=== PATIENT | male | born 1995 | race Asian ===

== ENCOUNTER 2018-05-10 12:02 | Emergency (ER) | payer SELFPAY ==
[2018-05-10] MEDS ORDERED: Ketorolac 30 MG/ML SDV IM ONE (12:30)
[2018-05-10] MEDS ORDERED: Orphenadrine 100 MG Tab.ER PO ONE (12:31)
--- NOTE | 2018-05-10 12:36 | EDM.PDOC ---
ED HPI GENERAL MEDICAL PROBLEM - General Chief Complaint: Back Pain or Injury Stated Complaint: BACK AND LEFT LEG PAIN Time Seen by Provider: 05/10/18 12:16 Source of Information: Reports: Patient, RN Notes Reviewed History Limitations: Reports: No Limitations - History of Present Illness INITIAL COMMENTS - FREE TEXT/NARRATIVE: Patient is a 23-year-old male who presents to the ED today for lower back pain. He states that this pain has been present for around 3 days now. He states that around 3 days ago he was in a car for around 3 hours and he was an awkward , scrunched position as he is quite tall. The gentleman is 6 foot 2 inches tall and states that he does not fit in cars very well. He states that the pain is kind of sharp/irritating pain that starts in his lower lumbar area and works down his left leg. He notes that he did not sleep very well last night due to the pain. He states that he took 400 mg ibuprofen last night around 11: 00 and again this morning around 7 AM. He states he has been taking this every 12 hours. He would rate the pain at a 5 or 6 out of 10. He states that sitting worsens the pain as like and standing somewhat relieves the pain but after a while this aggravates the low back pain. He denies any history of trauma to his back nor any previous deficits. He states that he is a former cigarette smoker and that he used to smoke weed fairly regularly but quit around 5 or 6 months ago. He states that he uses alcohol around 2-3 times per week. He denies any nausea/vomiting/diarrhea, chest pain, shortness of breath, abdominal pain, saddle anesthesia, urinary or bowel dysfunction. Lower Back Pain Score (Numeric/FACES): 6 - Related Data Allergies Allergy/AdvReac Type Severity Reaction Status Date / Time Penicillins Allergy Rash Verified 05/10/18 12:16 Home Meds: Home Meds Orphenadrine [Norflex] 100 mg PO BID PRN #20 tab 05/10/18 [Rx] predniSONE [Deltasone] 20 mg PO ASDIRECTED #15 tablet 05/10/18 [Rx] Past Medical History - Past Health History Medical/Surgical History: Denies Medical/Surgical History Social & Family History - Tobacco Use Smoking Status *Q: Former Smoker Used Tobacco, but Quit: Yes Month/Year Tobacco Last Used: 1 year ago - Caffeine Use Caffeine Use: Reports: Coffee - Recreational Drug Use Recreational Drug Use: Yes Drug Use in Last 12 Months: Yes Recreational Drug Type: Reports: Marijuana/Hashish Recreational Drug Use Frequency: Rarely ED ROS GENERAL - Review of Systems Review Of Systems: See Below Constitutional: Reports: No Symptoms HEENT: Reports: Eye Discharge Respiratory: Reports: No Symptoms Cardiovascular: Reports: No Symptoms Endocrine: Reports: No Symptoms GI/Abdominal: Reports: No Symptoms : Reports: No Symptoms Musculoskeletal: Reports: Back Pain (Lumbar), Leg Pain (Left). Denies: Muscle Pain, Muscle Stiffness Skin: Reports: No Symptoms Neurological: Denies: Numbness, Pre-Existing Deficit, Tingling Psychiatric: Reports: No Symptoms Hematologic/Lymphatic: Reports: No Symptoms Immunologic: Reports: No Symptoms ED EXAM,LOWER BACK PAIN/INJURY - Physical Exam Exam: See Below Exam Limited By: No Limitations General Appearance: Alert, WD/WN, No Apparent Distress Eye Exam: Bilateral Eye: Normal Inspection Ears: Normal External Exam Nose: Normal Inspection Throat/Mouth: Normal Inspection, Normal Oropharynx, No Airway Compromise Head: Atraumatic, Normocephalic Neck: Normal Inspection Respiratory/Chest: No Respiratory Distress, Lungs Clear, Normal Breath Sounds, No Accessory Muscle Use, Chest Non-Tender Cardiovascular: Normal Peripheral Pulses, Regular Rate, Rhythm, No Murmur GI/Abdominal: Normal Bowel Sounds, Soft, Non-Tender, No Distention, No Mass Back Exam: Normal Inspection, Full Range of Motion, Muscle Spasm Extremities: Normal Inspection, Normal Range of Motion, Non-Tender, No Pedal Edema, Normal Capillary Refill Neurological: Alert, Normal Mood/Affect, Normal Dorsiflexion, Normal Plantar Flexion, Normal Gait, Normal Reflexes, No Motor/Sensory Deficits, Oriented x 3, Straight Leg Raise (L). No: Straight Leg Raise (R), Saddle Anesthesia Psychiatric: Normal Affect, Normal Mood Skin Exam: Warm, Dry, Intact, Normal Color, No Rash Course - Vital Signs Last Recorded V/S: Last Vital Signs Temp 96.1 F 05/10/18 12:14 Pulse 97 05/10/18 12:14 Resp 16 05/10/18 12:14 BP 161/103 H 05/10/18 12:14 Pulse Ox 98 05/10/18 12:14 - Orders/Labs/Meds Meds: Medications Discontinued Medications Generic Name Dose Route Start Last Admin Trade Name Freq PRN Reason Stop Dose Admin Ketorolac Tromethamine 30 mg 05/10/18 12:30 05/10/18 12:42 Toradol IM 05/10/18 12:31 30 mg ONETIME ONE Administration Orphenadrine Citrate 100 mg 05/10/18 12:31 05/10/18 12:42 Norflex PO 05/10/18 12:32 100 mg ONETIME ONE Administration - Re-Assessments/Exams Free Text/Narrative Re-Assessment/Exam: 05/10/18 12:38 Patient presents to the ED for lower back pain. This is suspicious for sciatica in nature, I did order 30 mg IM Toradol and 100 mg Norflex for management of this. Will wait to see how he does with the medications and he will likely be discharged home with general recommendations. Departure - Departure Time of Disposition: 13:08 Disposition: Home, Self-Care 01 Condition: Fair Clinical Impression: Low back pain Qualifiers: Chronicity: acute Back pain laterality: left Sciatica presence: with sciatica Sciatica laterality: sciatica of left side Qualified Code(s): M54.42 - Lumbago with sciatica, left side - Discharge Information *PRESCRIPTION DRUG MONITORING PROGRAM REVIEWED*: No *COPY OF PRESCRIPTION DRUG MONITORING REPORT IN PATIENT CARMELITA: No Prescriptions: Orphenadrine [Norflex] 100 mg PO BID PRN #20 tab PRN Reason: Spasms predniSONE [Deltasone] 20 mg PO ASDIRECTED #15 tablet Instructions: Back Injury Prevention, [id number], Sciatica, [id number], Back Exercises, [id number], Back Pain, Adult, [id number] Referrals: PCP,None [Primary Care Provider] - Forms: ED Department Discharge Additional Instructions: You have been evaluated in the ED for your low back pain. Please use ice/heat as tolerated to the affected area. You may take tylenol 500 mg or ibuprofen 600mg q6 hrs for pain relief. Please do so until you have a tolerable level of pain with activity. Do not exceed 4000mg tylenol, Do not exceed 3200mg ibuprofen in a 24 hour time period. You have been given a prescription for Norflex (muscle relaxer) please take this every 12 hours as needed for muscle spasms. You should not drive while taking this medication, you may take this just at night for further pain relief if you wish to not take it during the day. You have been provided with prescription for prednisone as well. Please take this 20 mg by mouth twice daily for 5 days, then only 20 mg once daily for 5 days. These prescriptions have been electronically sent to [facility] located at [address] [place] [address]. Please return to ED if your symptoms should change or worsen.
== END 2018-05-10 13:40 | disposition home or self-care (01) ==
LOC: JD.ED 12:02
DX: M54.42 Lumbago with sciatica, left side (principal); Z88.0 Allergy status to penicillin; Z87.891 Personal history of nicotine dependence
CPT/HCPCS: 96372; 99283; A9270; J1885